=== PATIENT | male | born 2000 | race Hispanic/Latino ===

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

== ENCOUNTER 2023-11-18 14:29 | Emergency (ER) | payer SELFPAY | END 2023-11-18 14:45 | disposition left against medical advice (07) | LOC: EDH 14:29 | DX: R10.9 Unspecified abdominal pain (principal); Z53.21 Procedure and treatment not carried out due to patient leaving prior to being seen by health care provider ==

== ENCOUNTER 2023-11-30 10:52 | Emergency (ER) | payer OTHER ==
[~2023-11-30] VITALS: Ht 165.1 cm; Wt 59.0 kg
[2023-11-30 11:13] VITALS: BP 130/68; PULSE 82; RESP 16
[2023-11-30 11:46] LABS: BASOPHILS # (AUTO) 0.02 K/uL (0.00-0.20); BASOPHILS % (AUTO) 0.2 % (0.0-5.0); EOSINOPHILS # (AUTO) 0.01 K/uL (0.00-0.70); EOSINOPHILS % (AUTO) 0.1 % (0.0-8.0); HEMATOCRIT 51.3 % (42-54); IMMATURE GRANULOCYTE ABSOLUTE 0.02 K/uL (0-1); LYMPHOCYTES # (AUTO) 1.8 K/uL (1.0-4.8); LYMPHOCYTES % (AUTO) 17.9 % (21.0-51.0); MEAN CORPUSCULAR HEMOGLOBIN 33.6 pg (27.0-33.0); MEAN CORPUSCULAR HGB CONC 36.8 g/dL (32.0-36.0); MEAN CORPUSCULAR VOLUME 91.1 fL (79-99); MONOCYTES # (AUTO) 0.5 K/uL (0.1-1.0); MONOCYTES % (AUTO) 4.8 % (3.0-13.0); NEUTROPHILS # (AUTO) 7.6 K/uL (1.8-7.7); NEUTROPHILS % (AUTO) 76.8 % (40.0-77.0); PLATELET COUNT (AUTO) 258 K/uL (130-400); RED BLOOD CELL COUNT(AUTO) 5.63 MIL/uL (4.50-6.20); RED CELL DISTRIBUTION WIDTH 12.1 % (11.0-15.5); WHITE BLOOD COUNT (AUTO) 9.9 K/uL (4.8-10.8)
[2023-11-30 11:52] LABS: POTASSIUM 4.3 mmol/L (3.5-5.1)
[2023-11-30 11:56] LABS: ALBUMIN 4.9 g/dL (3.5-5.0); BILIRUBIN,TOTAL 1.3 mg/dL (0.2-1.0); TOTAL PROTEIN, SERUM 9.1 g/dL (6.0-8.3)
[2023-11-30 12:30] LABS: APPEARANCE,URINE CLOUDY (CLEAR); BILIRUBIN,URINE NEGATIVE (NEGATIVE); COLOR,URINE YELLOW (YELLOW); GLUCOSE, URINE (UA) NEGATIVE (NEGATIVE); KETONES,URINE 40 mg/dL (NEGATIVE); LEUKOCYTE ESTERASE ,URINE NEGATIVE Leu/uL (NEGATIVE); NITRATE,URINE NEGATIVE (NEGATIVE); OCCULT BLOOD,URINE NEGATIVE (NEGATIVE); PROTEIN,URINE 30 mg/dL (NEGATIVE); UROBILINOGEN,URINE 3 mg/dL (0.2-1.0)
[2023-11-30 12:35] LABS: ADD UA MICROSCOPIC YES
[2023-11-30] MEDS: FAMOTIDINE 20MG VIAL IV ONE (12:36)
[2023-11-30] MEDS: ONDANSETRON 4MG INJ IVP ONE (12:36)
[2023-11-30] MEDS: 0.9%NACL 1000ML 1,000 ML IV ONE (12:37)
[2023-11-30] MEDS: MAG/ALUM/SIMETH 30 ML UDCUP PO ONE (12:37)
[2023-11-30] MEDS: KETOROLAC 30MG VIAL (30MG/ML) IVP ONE (12:37)
[2023-11-30] MEDS: LIDOCAINE HCL 2% VISCOUS 15 ML UDCUP PO ONE (12:37)
[2023-11-30 12:38] LABS: BACTERIA,URINE FEW /HPF (None Seen); MUCUS,URINE MOD LPF (None Seen); SQUAMOUS EPITHELIAL CELL,UR RARE /HPF (0-2)
[2023-11-30] MEDS ORDERED: FAMO-136 PO (14:49)
[2023-11-30] MEDS ORDERED: ONDA4TAB10 PO (14:49)
== END 2023-11-30 15:15 | disposition home or self-care (01) ==
LOC: EDH 10:52
DX: R10.31 Right lower quadrant pain (principal); E86.0 Dehydration; K76.0 Fatty (change of) liver, not elsewhere classified; R11.2 Nausea with vomiting, unspecified
CPT/HCPCS: 99285; 96374; 76705; 96375; 80053; 83690; 85025; 81001; 36415; J3490; J7030; J2405; J1885